=== PATIENT | female | born 1965 ===

== ENCOUNTER 2023-03-24 15:28 | Outpatient (AMB) | payer MEDICARE, MEDICAID, SELFPAY ==
--- NOTE | 2023-03-24 15:29 | MHC.OFFVIS ---
Intake Vital Signs 03/24/23 15:32 Height 5 ft 2 in Weight 195 lb BMI 35.7 BP 112/72 Blood Pressure Location Rt brachial Position Sitting Pulse 67 Pulse Source Pulse Oximeter Pulse Oximetry (%) 90 L Oxygen Delivery Method Room Air Intake Visit Reasons: [id number]/Forgetting/Repeating Intake Note: Patient presents for headaches,fall,forgetting and repeating. patient state I had a fall and ever since then I've been forgetting things,I'm getting alot of headache and I'm sensitive to noise. Allergies No Known Allergies Allergy (Verified 03/24/23 15:35) Medication List - Last Reconciled 03/24/23 by Allyssa Licona MD albuterol sulfate 90 mcg/actuation 0 mcg inhalation atorvastatin 40 mg PO DAILY cholecalciferol (vitamin D3) (Vitamin D3) 25 mcg PO DAILY clindamycin phosphate 1% topical DAILY clonazepam 1 mg PO BEDTIME PRN clotrimazole 1% appl topical BID diclofenac sodium 1% grams topical donepezil 10 mg PO BEDTIME fluticasone propionate 110 mcg/actuation (Flovent HFA) 2 puffs inhalation BID hydroxyzine HCl 25 mg PO Q8H PRN ketoconazole 2% 1 appl topical mecobalamin (vitamin B12) 1,000 mcg PO DAILY ondansetron 4 mg PO Q8H PRN paroxetine HCl 10 mg PO BEDTIME trazodone 150 mg PO BEDTIME trazodone 50 mg PO BEDTIME PRN HPI HPI Comments History of Present Illness Details 58y/o female comes for neurological evaluation . 2 months ago she had a fall while she was walking down the steps at a constitution party . she does not remember what happened. Her family took her to [facility] . she regained consciousness in the hospital . She had X rays and CT scan . she was told she had concussion . Since then she has been having daily headaches, photophobia, phonophobia , nausea , neck pain , vertigo . Memory is worse since then . she has h/o cognitive impairment on aricpet , sleep apnea and oxygen . [facility] Medical History Anemia Asthma Cervicalgia COPD (chronic obstructive pulmonary disease) Depression Post concussion syndrome Vertigo of cervical arthrosis syndrome Surgical History H/O cervical spine surgery Social History Alcohol intake: never Patient Tobacco Use Status: Current everyday Tobacco user Substance Use Type: Marijuana Review of Systems Const Reports headache(s), Reports snoring and Reports weight gain ENT Reports vertigo, Reports dizziness and Reports headache(s) Resp Reports snoring Musc Reports back pain and Reports arthralgias Neuro Reports vertigo, Reports dizziness, Reports headache(s) and Reports memory loss Psych Reports anxiety, Reports depression and Reports memory loss Physical Exam Vital Signs: Last Vital Signs Pulse 67 03/24/23 15:32 BP 112/72 03/24/23 15:32 Pulse Ox 90 L 03/24/23 15:32 Oxygen Delivery Method Room Air 03/24/23 15:32 BMI result Body Mass Index 35.7 Const General: cooperative and in distress Nutritional Appearance: obese Orientation/consciousness: patient oriented x3 Neuro General: patient oriented x3 and moves all extremities Cranial nerves: Yes Facial sensation intact/muscles of mastication intact, Yes Bilaterally intact EOM present, Yes Nystagmus not present, Yes Normal facial strength present, Yes Midline tongue present and Yes Symmetric palate elevation present Gait exam (Neuro): Antalgic gait present Motor exam (neuro): 5/5 motor strength present throughout, Normal motor muscle tone present throughout and Tremors during motor activity present Deep tendon reflexes (DTR's): Right triceps reflex intensity grade: 1+, Left triceps reflex intensity grade: 1+, Rt Biceps (C5, C6): 1+, Left biceps reflex intensity grade: 1+, Right brachioradialis reflex intensity grade: 1+, Left brachioradialis reflex intensity grade: 1+, Right patellar reflex intensity grade: 1+ and Left patellar reflex intensity grade: 1+ Coordination: [id number] test normal Assessment & Plan Assessment & Plan (1) Post concussion syndrome: Comment: headaches, photophobia, nausea, vertigo Code(s): F07.81 - Postconcussional syndrome (2) Cervicalgia: Code(s): M54.2 - Cervicalgia Plan I will trial her on amitriptyline 10mg qhs decrease trazadone to 50mg qhs PT for neck and vestibular therapy Orders: Orders PT Evaluation and Treatment Today M47.9 - Spondylosis, unspecified, M54.2 - Cervicalgia, R42 - Dizziness and giddiness PT Evaluation and Treatment Today M47.9 - Spondylosis, unspecified, R42 - Dizziness and giddiness Medications: New amitriptyline 10 mg PO BEDTIME 30 tabs 2RF Coding Level of Care Code New Pt Level 4 (30981) Diagnoses Post concussion syndrome F07.81 Cervicalgia M54.2
[2023-03-24 15:32] VITALS: BP 112/72; PULSE 67; O2SAT 90; BMI 35.7
== END 2023-03-24 16:07 | disposition home or self-care (01) ==
PROVIDERS: Visit Provider Psychiatry & Neurology Neurology
DX: S06.9XAS Unspecified intracranial injury with loss of consciousness status unknown, sequela (principal); F07.81 Postconcussional syndrome; M54.2 Cervicalgia
CPT/HCPCS: 99204; 99214

== ENCOUNTER → 2023-03-24 15:28 | Outpatient (BNVA) | payer MEDICARE, MEDICAID, SELFPAY | PROVIDERS: Visit Provider Psychiatry & Neurology Neurology | DX: F07.81 Postconcussional syndrome (principal); M54.2 Cervicalgia; M47.9 Spondylosis, unspecified; R42 Dizziness and giddiness; Z91.81 History of falling | CPT/HCPCS: 99202 ==